=== PATIENT | male | born 1995 | race Caucasian/White ===

== ENCOUNTER 2018-09-25 18:03 | Emergency (ER) | payer OTHER ==
[~2018-09-25] VITALS: Ht 177.8 cm; Wt 75.0 kg
[2018-09-25 18:46] LABS: APPEARANCE, URINE CLEAR (CLEAR); BACTERIA, URINE AUTO 1+ (NEGATIVE); BILIRUBIN, URINE AUTO NEGATIVE (NEGATIVE); BLOOD, URINE BLOOD NEGATIVE (NEGATIVE); COLOR, URINE STRAW (YELLOW); GLUCOSE, URINE (UA) AUTO NEGATIVE (NEGATIVE); KETONE, URINE AUTO NEGATIVE (NEGATIVE); LEUKOCYTE ESTERASE, URINE AUTO 1+ (NEGATIVE); MUCUS, URINE SMALL (NEGATIVE); NITRITE, URINE AUTO NEGATIVE (NEGATIVE); PROTEIN, URINE AUTO NEGATIVE (NEGATIVE); RBC, URINE AUTO 2 /HPF (0-3); SPECIFIC GRAVITY URINE AUTO 1.009 (1.002-1.035); SQUAMOUS EPITHELIAL CELL UR AU 0 /HPF (0-6); UROBILINOGEN, URINE AUTO 0.2 mg/dL (0.0-2.0); WBC, URINE AUTO 6 /HPF (0-3)
[2018-09-25] MEDS ORDERED: cefTRIAXone SOD 250 MG VIAL (J0696) IM ONE (20:15)
[2018-09-25] MEDS ORDERED: LIDOCAINE 1% SDV 5 ML VIAL DILUENT ONE (20:15)
[2018-09-25] MEDS ORDERED: AZITHROMYCIN 250 MG TAB PO ONE (20:15)
[2018-09-25 20:27] LABS: CHLAMYDIA DNA AMPLIFICATION POSITIVE (NEGATIVE); GC DNA AMPLIFICATION NEGATIVE (NEGATIVE)
[2018-09-25 20:40] VITALS: BP 122/62
== END 2018-09-25 20:50 | disposition home or self-care (01) ==
LOC: M ED 18:03
DX: Z20.2 Contact with and (suspected) exposure to infections with a predominantly sexual mode of transmission (principal); L40.9 Psoriasis, unspecified
CPT/HCPCS: 81001; 87491; 87591; 96372; 99283; J0696

== ENCOUNTER → 2019-06-10 | Outpatient (CLI) | payer OTHER ==
[2019-06-10 16:06] LABS: BASO # 0.1 10^3/uL (0.0-0.2); BASO % 1.1 % (0.0-1.0); EOS # 0.2 10^3/uL (0.0-0.5); EOS % 2.4 % (0.0-3.0); HEMATOCRIT 45.2 % (42.0-52.0); HEMOGLOBIN 15.7 g/dl (13.5-17.5); LYMPH # 1.8 10^3/uL (1.5-5.0); LYMPH % 28.6 % (24.0-44.0); MEAN CORPUSCULAR HEMOGLOBIN 31.4 pg (27.0-33.0); MEAN CORPUSCULAR HGB CONC 34.7 g/dl (32.0-36.5); MEAN CORPUSCULAR VOLUME 90.4 fl (80.0-96.0); MONO # 0.7 10^3/uL (0.0-0.8); NEUTROPHILS # 3.6 10^3/uL (1.5-8.5); NEUTROPHILS % 56.7 % (36.0-66.0); PLATELET COUNT, AUTOMATED 218 10^3/uL (150-450); WHITE BLOOD COUNT 6.3 10^3/uL (4.0-10.0)
[2019-06-10 16:44] LABS: ERYTHROCYTE SEDIMENTATION RATE 4 mm/hr (0-15)
[2019-06-10 16:48] LABS: ALBUMIN 4.1 GM/DL (3.2-5.2); ALT/SGPT 18 U/L (12-78); BILIRUBIN,TOTAL 0.3 MG/DL (0.2-1.0); BLOOD UREA NITROGEN 11 MG/DL (7-18); C REACTIVE PROTEIN QUANTITATIV 0.54 MG/DL (0.00-0.30); CALCIUM LEVEL 9.2 MG/DL (8.5-10.1); CARBON DIOXIDE LEVEL 29 MEQ/L (21-32); CHLORIDE LEVEL 104 MEQ/L (98-107); CREATININE FOR GFR 1.02 MG/DL (0.70-1.30); GLOMERULAR FILTRATION RATE > 60.0 (>60); GLUCOSE, FASTING 71 MG/DL (70-100); POTASSIUM SERUM 3.9 MEQ/L (3.5-5.1); SODIUM LEVEL 141 MEQ/L (136-145); TOTAL PROTEIN 7.4 GM/DL (6.4-8.2)
[2019-06-12 08:48] LABS: HEPATITIS B SURFACE ANTIBODY POSITIVE (POSITIVE)
[2019-06-12 08:58] LABS: HEPATITIS B SURFACE ANTIGEN NEGATIVE (NEGATIVE)
[2019-06-12 09:26] LABS: HEPATITIS C VIRUS ABY INDEX 0.1 INDEX (<0.8)
[2019-06-13 08:06] LABS: HEPATITIS B CORE ANTIBODY IGG Negative (Negative)
== END ==
LOC: M LAB 14:37
PROVIDERS: ATTEND Internal Medicine Rheumatology
DX: L40.50 Arthropathic psoriasis, unspecified (principal)
CPT/HCPCS: 36415; 80053; 85025; 85652; 86140; 86480; 86704; 86706; 86803; 87340; G0463

== ENCOUNTER → 2019-07-30 | Outpatient (CLI) | payer OTHER ==
[2019-07-30 10:03] LABS: BASO # 0.1 10^3/uL (0.0-0.2); BASO % 1.6 % (0.0-1.0); EOS # 0.2 10^3/uL (0.0-0.5); EOS % 3.9 % (0.0-3.0); HEMOGLOBIN 15.6 g/dl (13.5-17.5); LYMPH # 2.2 10^3/uL (1.5-5.0); LYMPH % 41.9 % (24.0-44.0); MEAN CORPUSCULAR HEMOGLOBIN 30.7 pg (27.0-33.0); MEAN CORPUSCULAR HGB CONC 33.9 g/dl (32.0-36.5); MEAN CORPUSCULAR VOLUME 90.6 fl (80.0-96.0); MONO # 0.4 10^3/uL (0.0-0.8); MONO % 8.4 % (0.0-5.0); NEUTROPHILS # 2.3 10^3/uL (1.5-8.5); NEUTROPHILS % 43.8 % (36.0-66.0); PLATELET COUNT, AUTOMATED 225 10^3/uL (150-450); RED BLOOD COUNT 5.08 10^6/uL (4.30-6.10); WHITE BLOOD COUNT 5.1 10^3/uL (4.0-10.0)
[2019-07-30 10:25] LABS: ALBUMIN 4.3 GM/DL (3.2-5.2); ALT/SGPT 38 U/L (12-78); BILIRUBIN,TOTAL 0.4 MG/DL (0.2-1.0); BLOOD UREA NITROGEN 15 MG/DL (7-18); C REACTIVE PROTEIN QUANTITATIV < 0.30 MG/DL (0.00-0.30); CALCIUM LEVEL 9.1 MG/DL (8.5-10.1); CARBON DIOXIDE LEVEL 29 MEQ/L (21-32); CHLORIDE LEVEL 104 MEQ/L (98-107); CREATININE FOR GFR 0.86 MG/DL (0.70-1.30); GLOMERULAR FILTRATION RATE > 60.0 (>60); GLUCOSE, FASTING 85 MG/DL (70-100); POTASSIUM SERUM 4.2 MEQ/L (3.5-5.1); SODIUM LEVEL 139 MEQ/L (136-145); TOTAL PROTEIN 7.4 GM/DL (6.4-8.2)
[2019-07-30 10:27] LABS: ERYTHROCYTE SEDIMENTATION RATE 1 mm/hr (0-15)
== END ==
LOC: M LAB 09:07
PROVIDERS: ATTEND Internal Medicine Rheumatology
DX: M46.1 Sacroiliitis, not elsewhere classified (principal)

== ENCOUNTER 2019-10-07 14:07 | Emergency (ER) | payer OTHER ==
[~2019-10-07] VITALS: Ht 180.3 cm; Wt 85.5 kg
[2019-10-07] MEDS ORDERED: [UNRECOGNIZED DRUG - OTHER] (14:14)
[2019-10-07] MEDS ORDERED: HUMI40KI2 SC (15:01)
--- NOTE | 2019-10-07 16:26 | REP ---
Chest x-ray: Two views. History: Shortness of breath and chest pain . Comparison study: No comparison . Findings: The lungs are well inflated and free of infiltrate. The pleural angles are sharp. The heart size is normal. Pulmonary vasculature is not increased. No significant bony abnormality is seen. Impression: Negative chest x-ray. Electronically Signed by Fabian Sandhu MD 10/07/2019 04:17 P
[2019-10-07 17:23] VITALS: BP 131/69
--- NOTE | 2019-10-07 19:18 | ECGEPIP ---
[facility] - ED Test Date: 2019-10-07 Pat Name: JANINE KEANE Department: Room: - Gender: Male [employer] Custodian: mino : 1995 Requested By: HAZEL FRANKS PA-C Order Number: [id number] Reading MD: Kathy Elias Measurements Intervals [place] Rate: 62 P: 12 AK: 149 QRS: 63 QRSD: 103 T: 42 QT: 381 QTc: 387 Interpretive Statements SINUS RHYTHM ST ELEVATION, PROBABLY EARLY REPOLARIZATION NO PRIOR Electronically Signed on 10-07-2019 19:18:40 EST by Kathy Elias
== END 2019-10-07 17:23 | disposition home or self-care (01) ==
LOC: M ED 14:07
DX: R20.2 Paresthesia of skin (principal); R06.02 Shortness of breath; L40.50 Arthropathic psoriasis, unspecified; F17.210 Nicotine dependence, cigarettes, uncomplicated; Z79.899 Other long term (current) drug therapy

== ENCOUNTER → 2020-03-13 | Outpatient (CLI) | payer OTHER ==
[~2020-03-13] MED LIST: HUMI40KI2 SC; [UNRECOGNIZED DRUG - OTHER]
[2020-03-13 15:53] LABS: BASO # 0.1 10^3/uL (0.0-0.2); BASO % 1.2 % (0.0-1.0); EOS # 0.3 10^3/uL (0.0-0.5); EOS % 4.4 % (0.0-3.0); HEMATOCRIT 43.2 % (42.0-52.0); LYMPH # 2.3 10^3/uL (1.5-5.0); MEAN CORPUSCULAR HEMOGLOBIN 31.4 pg (27.0-33.0); MEAN CORPUSCULAR HGB CONC 34.7 g/dl (32.0-36.5); MEAN CORPUSCULAR VOLUME 90.6 fl (80.0-96.0); MONO # 0.5 10^3/uL (0.0-0.8); MONO % 9.5 % (0.0-5.0); NEUTROPHILS # 2.5 10^3/uL (1.5-8.5); NEUTROPHILS % 44.5 % (36.0-66.0); PLATELET COUNT, AUTOMATED 211 10^3/uL (150-450); RED BLOOD COUNT 4.77 10^6/uL (4.30-6.10); WHITE BLOOD COUNT 5.7 10^3/uL (4.0-10.0)
[2020-03-13 16:37] LABS: ALBUMIN 4.2 GM/DL (3.2-5.2); ALT/SGPT 67 U/L (12-78); BILIRUBIN,TOTAL 0.4 MG/DL (0.2-1.0); BLOOD UREA NITROGEN 15 MG/DL (7-18); CALCIUM LEVEL 8.8 MG/DL (8.5-10.1); CARBON DIOXIDE LEVEL 26 MEQ/L (21-32); CHLORIDE LEVEL 106 MEQ/L (98-107); CK-MB VALUE MASS < 1.0 NG/ML (<3.6); CPK CREATINE PHOSPHOKINASE 167 U/L (39-308); CREATININE FOR GFR 0.86 MG/DL (0.70-1.30); GLOMERULAR FILTRATION RATE > 60.0 (>60); GLUCOSE, FASTING 84 MG/DL (70-100); POTASSIUM SERUM 4.1 MEQ/L (3.5-5.1); SODIUM LEVEL 139 MEQ/L (136-145); TOTAL PROTEIN 7.3 GM/DL (6.4-8.2); TROPONIN I < 0.02 NG/ML (< 0.10)
--- NOTE | 2020-03-14 13:22 | REP ---
TWO-VIEW CHEST: REASON: Tietze syndrome. COMPARISON: No priors. FINDINGS: The superior mediastinal structures are midline. The cardiac silhouette is unremarkable in size, shape, and position. The diaphragmatic surfaces of the lungs are regular, and the costophrenic angles are clear. The pulmonary luevano are clear. The imaged osseous structures are intact. IMPRESSION: There is no acute cardiopulmonary disease. Electronically Signed by Олег Bird DO 03/15/2020 08:25 A
== END ==
LOC: M WUC 15:00
PROVIDERS: ATTEND Nurse Practitioner Family
DX: M94.0 Chondrocostal junction syndrome [Tietze] (principal)

== ENCOUNTER 2020-04-11 23:13 | Emergency (ER) | payer OTHER | END 2020-04-12 02:30 | disposition home or self-care (01) | LOC: M ED 23:13 | DX: J02.9 Acute pharyngitis, unspecified (principal); Z79.899 Other long term (current) drug therapy ==

== ENCOUNTER → 2020-04-18 | Outpatient (REF) | payer OTHER ==
[2020-05-26 14:09] LABS: EBV AB TO NUCLEAR ANTIGEN SEE SEPARATE REPORT; EBV VIRAL CAPSID AG IgG SEE SEPARATE REPORT; EBV VIRAL CAPSID AG IgM SEE SEPARATE REPORT
[2020-06-07 09:18] LABS: BASO # 0.1 10^3/uL (0.0-0.2); BASO % 1.2 % (0.0-1.0); EOS # 0.3 10^3/uL (0.0-0.5); EOS % 4.6 % (0.0-3.0); HEMATOCRIT 44.9 % (42.0-52.0); HEMOGLOBIN 15.6 g/dl (13.5-17.5); LYMPH # 2.7 10^3/uL (1.5-5.0); LYMPH % 40.4 % (24.0-44.0); MEAN CORPUSCULAR HGB CONC 34.7 g/dl (32.0-36.5); MEAN CORPUSCULAR VOLUME 89.3 fl (80.0-96.0); MONO # 0.5 10^3/uL (0.0-0.8); NEUTROPHILS # 3.1 10^3/uL (1.5-8.5); NEUTROPHILS % 45.7 % (36.0-66.0); PLATELET COUNT, AUTOMATED 235 10^3/uL (150-450); RED BLOOD COUNT 5.03 10^6/uL (4.30-6.10); WHITE BLOOD COUNT 6.8 10^3/uL (4.0-10.0)
== END ==
LOC: M LABWUC 13:53 → M LAB REF 13:53
PROVIDERS: ATTEND Physician Assistant
DX: J02.9 Acute pharyngitis, unspecified (principal)

== ENCOUNTER 2020-05-20 00:16 | Emergency (ER) | payer OTHER, SELFPAY ==
[~2020-05-20] VITALS: Ht 177.8 cm; Wt 81.8 kg
--- NOTE | 2020-05-20 00:58 | REPVR ---
PROCEDURE INFORMATION: Exam: XR Chest, 2 Views Exam date and time: 05/20/2020 12:45 AM Age: 24 years old Clinical indication: Other: Cp; Additional info: Chest pain TECHNIQUE: Imaging protocol: XR of the chest Views: 2 views. COMPARISON: CR CHEST 2 VIEW 03/13/2020 3:16 PM FINDINGS: Lungs: Question of minimal calcified granulomata which are unchanged. There are no interval infiltrates. Pleural space: Unremarkable. No pleural effusion. No pneumothorax. Heart/Mediastinum: Unremarkable. No cardiomegaly. Bones/joints: Unremarkable. IMPRESSION: Negative chest without change from 03/13/2020. Electronically signed by: Blas Kaplan On 05/20/2020 00:57:48 AM
[2020-05-20 01:17] LABS: BASO # 0.1 10^3/uL (0.0-0.2); BASO % 0.7 % (0.0-1.0); EOS # 0.3 10^3/uL (0.0-0.5); EOS % 3.6 % (0.0-3.0); HEMATOCRIT 44.3 % (42.0-52.0); HEMOGLOBIN 15.3 g/dl (13.5-17.5); LYMPH # 3.3 10^3/uL (1.5-5.0); LYMPH % 39.9 % (24.0-44.0); MEAN CORPUSCULAR HEMOGLOBIN 30.7 pg (27.0-33.0); MEAN CORPUSCULAR HGB CONC 34.5 g/dl (32.0-36.5); MONO # 0.8 10^3/uL (0.0-0.8); MONO % 10.1 % (0.0-5.0); NEUTROPHILS # 3.7 10^3/uL (1.5-8.5); NEUTROPHILS % 45.5 % (36.0-66.0); PLATELET COUNT, AUTOMATED 231 10^3/uL (150-450); RED BLOOD COUNT 4.98 10^6/uL (4.30-6.10); WHITE BLOOD COUNT 8.2 10^3/uL (4.0-10.0)
[2020-05-20 01:41] LABS: ALT/SGPT 22 U/L (12-78); BILIRUBIN,DIRECT 0.1 MG/DL (0.0-0.2); BILIRUBIN,TOTAL 0.3 MG/DL (0.2-1.0); BLOOD UREA NITROGEN 17 MG/DL (7-18); CALCIUM LEVEL 9.2 MG/DL (8.5-10.1); CARBON DIOXIDE LEVEL 29 MEQ/L (21-32); CHLORIDE LEVEL 105 MEQ/L (98-107); CK-MB VALUE MASS < 1.0 NG/ML (<3.6); CPK CREATINE PHOSPHOKINASE 126 U/L (39-308); CREATININE FOR GFR 0.96 MG/DL (0.70-1.30); GLOMERULAR FILTRATION RATE > 60.0 (>60); GLUCOSE, FASTING 92 MG/DL (70-100); LIPASE 74 U/L (73-393); MB/CK RELATIVE INDEX 0.79 (< OR =4); POTASSIUM SERUM 3.9 MEQ/L (3.5-5.1); SODIUM LEVEL 137 MEQ/L (136-145); TOTAL PROTEIN 7.6 GM/DL (6.4-8.2); TROPONIN I < 0.02 NG/ML (< 0.10)
[2020-05-20 02:30] VITALS: BP 119/72
--- NOTE | 2020-05-23 09:42 | ECGEPIP ---
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
== END 2020-05-20 03:05 | disposition home or self-care (01) ==
LOC: M ED 00:16
DX: R07.9 Chest pain, unspecified (principal); L40.52 Psoriatic arthritis mutilans; Z79.899 Other long term (current) drug therapy

== ENCOUNTER 2020-12-04 22:13 | Emergency (ER) | payer OTHER ==
[~2020-12-04] VITALS: Ht 177.8 cm; Wt 90.6 kg
[2020-12-05] MEDS ORDERED: diphenhydrAMINE 50MG/ML VIAL (J1200) IV STA (02:09)
[2020-12-05] MEDS ORDERED: METOCLOPRAMIDE INJ 10MG/2ML VIAL (J2765 PER 1) IV ONE (02:10)
[2020-12-05] MEDS ORDERED: NS 1,000 ML IV ONE (02:10)
[2020-12-05 02:38] LABS: HEMATOCRIT 43.2 % (42.0-52.0); HEMOGLOBIN 14.4 g/dl (13.5-17.5); MEAN CORPUSCULAR HEMOGLOBIN 30.1 pg (27.0-33.0); MEAN CORPUSCULAR HGB CONC 33.3 g/dl (32.0-36.5); MEAN CORPUSCULAR VOLUME 90.4 fl (80.0-96.0); PLATELET COUNT, AUTOMATED 171 10^3/uL (150-450); RED BLOOD COUNT 4.78 10^6/uL (4.30-6.10); WHITE BLOOD COUNT 4.2 10^3/uL (4.0-10.0)
[2020-12-05 03:06] LABS: BLOOD UREA NITROGEN 14 MG/DL (7-18); CALCIUM LEVEL 8.5 MG/DL (8.5-10.1); CARBON DIOXIDE LEVEL 29 MEQ/L (21-32); CHLORIDE LEVEL 108 MEQ/L (98-107); CREATININE FOR GFR 0.87 MG/DL (0.70-1.30); GLOMERULAR FILTRATION RATE > 60.0 (>60); GLUCOSE, FASTING 102 MG/DL (70-100); POTASSIUM SERUM 4.2 MEQ/L (3.5-5.1); SODIUM LEVEL 141 MEQ/L (136-145)
[2020-12-05 03:37] LABS: RSV AMPLIFICATION NEGATIVE (NEGATIVE)
[2020-12-05] MEDS ORDERED: FIOR1CAP PO (04:30)
[2020-12-05 04:42] VITALS: BP 123/62
== END 2020-12-05 04:43 | disposition home or self-care (01) ==
LOC: M ED 22:13
DX: G43.909 Migraine, unspecified, not intractable, without status migrainosus (principal); J02.9 Acute pharyngitis, unspecified; Z79.899 Other long term (current) drug therapy
CPT/HCPCS: 80048; 85027; 87631; 96361; 96374; 96375; 99283; J1200; J2765

== ENCOUNTER 2020-12-06 21:11 | Emergency (ER) | payer OTHER ==
[~2020-12-06] VITALS: Ht 177.8 cm; Wt 90.6 kg
[~2020-12-06 21:11] MED LIST changes: +FIOR1CAP PO
[2020-12-06] MEDS ORDERED: diphenhydrAMINE 50MG/ML VIAL (J1200) IV STA (22:52)
[2020-12-06] MEDS ORDERED: KETOROLAC 30 MG/ML 1ML VIAL IV ONE (22:55)
[2020-12-06] MEDS ORDERED: METOCLOPRAMIDE INJ 10MG/2ML VIAL (J2765 PER 1) IV ONE (22:55)
[2020-12-06] MEDS ORDERED: NS 1,000 ML IV ONE (22:55)
[2020-12-07 00:03] LABS: ERYTHROCYTE SEDIMENTATION RATE 6 mm/hr (0-15)
[2020-12-07 00:07] LABS: BASO # 0.1 10^3/uL (0.0-0.2); BASO % 1.3 % (0.0-1.0); EOS # 0.1 10^3/uL (0.0-0.5); EOS % 1.8 % (0.0-3.0); HEMATOCRIT 43.1 % (42.0-52.0); HEMOGLOBIN 14.9 g/dl (13.5-17.5); LYMPH # 1.6 10^3/uL (1.5-5.0); LYMPH % 36.1 % (24.0-44.0); MEAN CORPUSCULAR HEMOGLOBIN 30.5 pg (27.0-33.0); MEAN CORPUSCULAR HGB CONC 34.6 g/dl (32.0-36.5); MEAN CORPUSCULAR VOLUME 88.3 fl (80.0-96.0); MONO # 0.5 10^3/uL (0.0-0.8); MONO % 11.1 % (2.0-8.0); NEUTROPHILS # 2.2 10^3/uL (1.5-8.5); NEUTROPHILS % 48.8 % (36.0-66.0); PLATELET COUNT, AUTOMATED 183 10^3/uL (150-450); RED BLOOD COUNT 4.88 10^6/uL (4.30-6.10); WHITE BLOOD COUNT 4.5 10^3/uL (4.0-10.0)
[2020-12-07 00:18] LABS: MONO REFLEX EBV COMP NEGATIVE (NEGATIVE)
[2020-12-07] MEDS ORDERED: PROHANCE 279.3MG/ML 15ML VIAL As Ordered ONE (01:07)
[2020-12-07] MEDS ORDERED: PROHANCE 279.3MG/ML 5ML VIAL As Ordered ONE (01:07)
--- NOTE | 2020-12-07 01:50 | REPVR ---
PROCEDURE INFORMATION: Exam: MR Lumbar Spine Without and With Contrast Exam date and time: 12/07/2020 1:25 AM Age: 25 years old Clinical indication: Low back pain; Additional info: Fever, low back pain, worsening, PT tender TECHNIQUE: Imaging protocol: Multiplanar magnetic resonance images of the lumbar spine without and with intravenous contrast. Contrast material: PROHANCE; Contrast volume: 18 ml; Contrast route: INTRAVENOUS (IV); COMPARISON: No relevant prior studies available. FINDINGS: Nonspecific straightening. Vertebral body height and AP alignment is preserved. Multilevel Schmorl's node formation. Negative for discitis/osteomyelitis. Conus medullaris terminates at L1. No epidural fluid collection. No pathologic intrathecal enhancement. L1-L2: No central or foraminal stenosis. L2-L3: No central or foraminal stenosis. L3-L4: No central or foraminal stenosis. L4-L5: No central or foraminal stenosis. L5-S1: No central or foraminal stenosis. IMPRESSION: 1. No acute abnormality involving the lumbar spine. 2. No significant central canal compromise throughout. Electronically signed by: Cristóbal Lal On 12/07/2020 01:50:16 AM
[2020-12-07] MEDS ORDERED: ANEC4CRE3 TOP (02:01)
[2020-12-07] MEDS ORDERED: NAPR-837 PO (02:01)
[2020-12-07 02:37] VITALS: BP 126/69
[2020-12-08 16:09] LABS: EBV AB TO NUCLEAR ANTIGEN >600.0 U/mL (0.0-17.9); EBV VIRAL CAPSID AG IgG >600.0 U/mL (0.0-17.9); EBV VIRAL CAPSID AG IgM <36.0 U/mL (0.0-35.9)
== END 2020-12-07 02:44 | disposition home or self-care (01) ==
LOC: M ED 21:11
DX: F50.9 Eating disorder, unspecified (principal); R51.9 Headache, unspecified; M54.5 Low back pain; F41.9 Anxiety disorder, unspecified
CPT/HCPCS: 72158; 80047; 83605; 85025; 85652; 86140; 86308; 86664; 86665; 87040; 87798; 96361; 96374; 96375; 99284; A9576; J1200; J1885; J2765

== ENCOUNTER 2020-12-10 15:41 | Emergency (ER) | payer OTHER ==
[~2020-12-10] VITALS: Ht 182.9 cm; Wt 88.9 kg
[2020-12-10 15:41] VITALS: BP 118/84
[~2020-12-10 15:41] MED LIST changes: +ANEC4CRE3 TOP; +NAPR-837 PO
[2020-12-10] MEDS ORDERED: CEFD1CAP8 (15:53)
[2020-12-10] MEDS ORDERED: ZITH250T (15:53)
[2020-12-10] MEDS ORDERED: ACET-683 PO (15:53)
[2020-12-10] MEDS ORDERED: ACETAMINOPHEN 325 MG TAB PO ONE (16:55)
--- NOTE | 2020-12-10 17:16 | REPVR ---
PROCEDURE INFORMATION: Exam: CT Head Without Contrast Exam date and time: 12/10/2020 4:59 PM Age: 25 years old Clinical indication: Pain; Headache; Additional info: Headache x 1 week TECHNIQUE: Imaging protocol: Computed tomography of the head without contrast. Radiation optimization: All CT scans at this facility use at least one of these dose optimization techniques: automated exposure control; mA and/or kV adjustment per patient size (includes targeted exams where dose is matched to clinical indication); or iterative reconstruction. COMPARISON: No relevant prior studies available. FINDINGS: Brain: No acute intracranial hemorrhage, cerebral edema, or midline shift. Cerebral ventricles: No hydrocephalus. Bones/joints: No acute fracture. Paranasal sinuses: There is a tiny mucous retention cyst in the right maxillary sinus. There is no acute sinusitis. Mastoid air cells: Visualized mastoid air cells are well aerated. Orbital cavity: Unremarkable as visualized. Soft tissues: Unremarkable. IMPRESSION: No acute intracranial abnormality. Electronically signed by: Bala Thompson On 12/10/2020 17:17:24 PM
[2020-12-10 17:20] LABS: BASO # 0.1 10^3/uL (0.0-0.2); BASO % 1.2 % (0.0-1.0); EOS # 0.1 10^3/uL (0.0-0.5); EOS % 1.4 % (0.0-3.0); HEMATOCRIT 42.2 % (42.0-52.0); HEMOGLOBIN 14.4 g/dl (13.5-17.5); LYMPH # 2.6 10^3/uL (1.5-5.0); LYMPH % 50.9 % (24.0-44.0); MEAN CORPUSCULAR HEMOGLOBIN 30.3 pg (27.0-33.0); MEAN CORPUSCULAR HGB CONC 34.1 g/dl (32.0-36.5); MEAN CORPUSCULAR VOLUME 88.8 fl (80.0-96.0); MONO # 0.5 10^3/uL (0.0-0.8); MONO % 9.7 % (2.0-8.0); NEUTROPHILS # 1.9 10^3/uL (1.5-8.5); NEUTROPHILS % 36.4 % (36.0-66.0); PLATELET COUNT, AUTOMATED 194 10^3/uL (150-450); RED BLOOD COUNT 4.75 10^6/uL (4.30-6.10); WHITE BLOOD COUNT 5.2 10^3/uL (4.0-10.0)
--- NOTE | 2020-12-10 17:24 | REPVR ---
PROCEDURE INFORMATION: Exam: CT Cervical Spine Without Contrast Exam date and time: 12/10/2020 4:59 PM Age: 25 years old Clinical indication: Pain; Other: Headache; Additional info: Headache x 1 week TECHNIQUE: Imaging protocol: Computed tomography images of the cervical spine without contrast. Radiation optimization: All CT scans at this facility use at least one of these dose optimization techniques: automated exposure control; mA and/or kV adjustment per patient size (includes targeted exams where dose is matched to clinical indication); or iterative reconstruction. COMPARISON: No relevant prior studies available. FINDINGS: Bones/joints: No acute fracture. Normal alignment. Discs/Spinal canal/Neural foramina: No significant spinal canal stenosis or neural foraminal narrowing. Lungs: Lung apices are normal. Soft tissues: Unremarkable. IMPRESSION: No acute findings. Electronically signed by: Bala Thompson On 12/10/2020 17:24:19 PM
[2020-12-10 17:37] LABS: ALBUMIN 3.8 GM/DL (3.2-5.2); ALT/SGPT 460 U/L (12-78); BILIRUBIN,TOTAL 0.5 MG/DL (0.2-1.0); BLOOD UREA NITROGEN 6 MG/DL (7-18); C REACTIVE PROTEIN QUANTITATIV 1.56 MG/DL (0.00-0.30); CALCIUM LEVEL 8.9 MG/DL (8.5-10.1); CARBON DIOXIDE LEVEL 30 MEQ/L (21-32); CHLORIDE LEVEL 106 MEQ/L (98-107); CREATININE FOR GFR 0.92 MG/DL (0.70-1.30); GLOMERULAR FILTRATION RATE > 60.0 (>60); GLUCOSE, FASTING 117 MG/DL (70-100); POTASSIUM SERUM 4.1 MEQ/L (3.5-5.1); SODIUM LEVEL 140 MEQ/L (136-145); TOTAL PROTEIN 7.2 GM/DL (6.4-8.2)
[2020-12-10 17:44] LABS: ERYTHROCYTE SEDIMENTATION RATE 7 mm/hr (0-15)
[2020-12-10] MEDS ORDERED: NS 1,000 ML IV ONE (17:50)
[2020-12-10 18:24] LABS: HEPATITIS B SURFACE ANTIGEN NEGATIVE (NEGATIVE)
--- NOTE | 2020-12-10 18:40 | REP ---
INDICATION: elevated lfts/fever. COMPARISON: None. TECHNIQUE: Abdominal right upper quadrant ultrasound. FINDINGS: There is a negative Alanis sign to transducer pressure. There is no cholelithiasis, gallbladder wall thickening or pericholecystic fluid. There is no intrahepatic or extrahepatic biliary duct dilatation. The common biliary duct measures 3 point mm in diameter. The hepatic parenchyma is homogeneous and otherwise unremarkable. The pancreas is suboptimally visualized. The right kidney measures 12.0 x 5.1 x 5.2 cm and is normal size. There is no right renal calculus, hydronephrosis, solid mass or cystic mass. There is no right upper quadrant abdominal free fluid. IMPRESSION: Essentially negative abdominal right upper quadrant ultrasound. The pancreas is suboptimally visualized. <Electronically signed by Juice Osorio > 12/10/20 [id number]
[2020-12-10 18:52] LABS: HEPATITIS B CORE ANTIBODY IGM NEGATIVE (NEGATIVE); HEPATITIS C VIRUS ABY INDEX < 0.0 INDEX (<0.8)
[2020-12-10 18:54] LABS: HEPATITIS A ANTIBODY IGM NEGATIVE (NEGATIVE)
[2020-12-14 15:07] LABS: Lyme Disease IgG Ab 18 kDa Ban Absent (.); Lyme Disease IgG Ab 23 kDa Ban Absent (.); Lyme Disease IgG Ab 28 kDa Ban Absent (.); Lyme Disease IgG Ab 30 kDa Ban Absent (.); Lyme Disease IgG Ab 39 kDa Ban Absent (.); Lyme Disease IgG Ab 41 kDa Ban Present (.); Lyme Disease IgG Ab 45 kDa Ban Absent (.); Lyme Disease IgG Ab 58 kDa Ban Absent (.); Lyme Disease IgG Ab 66 kDa Ban Absent (.); Lyme Disease IgG Ab 93 kDa Ban Absent (.); Lyme Disease IgG West Blot Int Negative (.); Lyme Disease IgG/IgM Antibodie <0.91 ISR (0.00-0.90); Lyme Disease IgM Ab 23 kDa Ban Absent (.); Lyme Disease IgM Ab 39 kDa Ban Absent (.); Lyme Disease IgM Ab 41 kDa Ban Present (.); Lyme Disease IgM Ab Quantitati 2.37 index (0.00-0.79); Lyme Disease IgM West Blot Int Negative (.)
== END 2020-12-10 19:35 | disposition home or self-care (01) ==
LOC: M ED 15:41
DX: B34.9 Viral infection, unspecified (principal); R50.9 Fever, unspecified; R51.9 Headache, unspecified

== ENCOUNTER 2020-12-13 11:20 | Emergency (ER) | payer OTHER ==
[~2020-12-13] VITALS: Ht 177.8 cm; Wt 88.1 kg
[~2020-12-13 11:20] MED LIST changes: +ACET-683 PO; +CEFD1CAP8; +ZITH250T
[2020-12-13] MEDS ORDERED: IBUP200C25 PO (12:03)
[2020-12-13] MEDS ORDERED: NS 1,000 ML IV ONE (13:55)
[2020-12-13 14:19] LABS: HEMATOCRIT 43.5 % (42.0-52.0); HEMOGLOBIN 14.6 g/dl (13.5-17.5); MEAN CORPUSCULAR HEMOGLOBIN 29.9 pg (27.0-33.0); MEAN CORPUSCULAR HGB CONC 33.6 g/dl (32.0-36.5); PLATELET COUNT, AUTOMATED 213 10^3/uL (150-450); RED BLOOD COUNT 4.89 10^6/uL (4.30-6.10); WHITE BLOOD COUNT 6.8 10^3/uL (4.0-10.0)
[2020-12-13] MEDS ORDERED: ISOVUE-370 76% 100ML VIAL As Ordered ONE (14:33)
[2020-12-13 14:48] LABS: AMPHETAMINES LEVEL URINE NEGATIVE (NEGATIVE); BARBITURATES URINE NEGATIVE (NEGATIVE); BENZODIAZEPINES URINE NEGATIVE (NEGATIVE); CANNABINOIDS URINE NEGATIVE (NEGATIVE); COCAINE METABOLITE URINE NEGATIVE (NEGATIVE); METHADONE URINE NEGATIVE (NEGATIVE); OPIATES URINE NEGATIVE (NEGATIVE); PHENCYCLIDINE URINE NEGATIVE (NEGATIVE)
[2020-12-13 14:55] LABS: ACETAMINOPHEN LEVEL < 2.0 UG/ML (10.0-30.0); ALBUMIN 3.9 GM/DL (3.2-5.2); ALT/SGPT 866 U/L (12-78); BILIRUBIN,DIRECT 0.2 MG/DL (0.0-0.2); BILIRUBIN,TOTAL 0.7 MG/DL (0.2-1.0); C REACTIVE PROTEIN QUANTITATIV 1.55 MG/DL (0.00-0.30); TOTAL PROTEIN 7.4 GM/DL (6.4-8.2)
[2020-12-13 15:06] LABS: ATYPICAL LYMPH 64 % (0-5); EOSINOPHILS 3 % (0-3); LYMPHOCYTES 4 % (16-44); MONOCYTES 3 % (0-5); NEUTROPHILS 22 % (28-66); PLATELET ESTIMATE NORMAL (NORMAL)
--- NOTE | 2020-12-13 15:27 | REP ---
INDICATION: cva tenderness COMPARISON: None. TECHNIQUE: CT Scan of the abdomen and pelvis was performed with intravenous administration of 100 cc of Isovue 370, without oral contrast. Sagittal and coronal reconstruction images are performed. FINDINGS: Lung bases: Unremarkable. Liver: Normal Gallbladder: Unremarkable. Spleen: Normal. Adrenals: Normal. Pancreas: Normal. Kidneys: Normal. Small and large bowel: Unremarkable. Free fluid: None. Abdominal aorta: No aneurysm or dissection. Adenopathy: None. Multiple subcentimeter lymph nodes are seen scattered diffusely throughout the mesentery. Appendix: Not inflamed. Osseous structures: There is mild sclerotic change along the sacroiliac joints. Pelvis: No mass. IMPRESSION: No acute pathology identified. Mild sclerosis at the sacroiliac joints bilaterally. <Electronically signed by Juice Davis > 12/13/20 [id number]
[2020-12-13 15:43] LABS: INR 1.08; PARTIAL THROMBOPLASTIN TIME 30.5 SECONDS (24.2-38.5); PROTHROMBIN TIME 14.3 SECONDS (12.5-14.3)
[2020-12-13] MEDS ORDERED: ACETAMINOPHEN 325 MG TAB PO ONE (15:45)
--- NOTE | 2020-12-13 16:22 | ECGEPIP ---
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
[2020-12-13] MEDS ORDERED: CEPH500C PO (17:12)
[2020-12-13] MEDS ORDERED: ZOFR4TAB16 PO (17:13)
[2020-12-13] MEDS ORDERED: CEPHALEXIN 500 MG CAP PO ONE (17:20)
[2020-12-13 17:39] VITALS: BP 114/66
[2020-12-14 10:29] LABS: HEPATITIS B SURFACE ANTIGEN NEGATIVE (NEGATIVE)
[2020-12-14 10:56] LABS: HEPATITIS C VIRUS ABY INDEX < 0.0 INDEX (<0.8)
[2020-12-14 10:57] LABS: HEPATITIS B CORE ANTIBODY IGM NEGATIVE (NEGATIVE)
[2020-12-14 12:34] LABS: HEPATITIS A ANTIBODY IGM NEGATIVE (NEGATIVE)
== END 2020-12-13 17:42 | disposition home or self-care (01) ==
LOC: M ED 11:20
DX: J02.0 Streptococcal pharyngitis (principal); R53.81 Other malaise; R53.83 Other fatigue; R94.5 Abnormal results of liver function studies; M46.1 Sacroiliitis, not elsewhere classified; R51.9 Headache, unspecified; M54.9 Dorsalgia, unspecified; F41.9 Anxiety disorder, unspecified
CPT/HCPCS: 36415; 74177; 80047; 80076; 80143; 80307; 81001; 85025; 85610; 85730; 86140; 86705; 86709; 86803; 87340; 87880; 93005; 96360; 96361; 99284; Q9967

== ENCOUNTER 2020-12-16 18:56 | Inpatient (IN) | payer OTHER ==
[~2020-12-16] VITALS: Ht 177.8 cm; Wt 84.1 kg
[~2020-12-16 18:56] MED LIST changes: +CEPH500C PO; +IBUP200C25 PO; +ZOFR4TAB16 PO
[2020-12-16] MEDS: NS 1,000 ML IV SCH (20:09)
[2020-12-16] MEDS: GASTROGRAFIN SOLUTION 30ML PO SCH ×2 (20:09→20:38)
[2020-12-16 20:22] LABS: HEMATOCRIT 43.3 % (42.0-52.0); HEMOGLOBIN 14.6 g/dl (13.5-17.5); MEAN CORPUSCULAR HEMOGLOBIN 30.3 pg (27.0-33.0); MEAN CORPUSCULAR HGB CONC 33.7 g/dl (32.0-36.5); MEAN CORPUSCULAR VOLUME 89.8 fl (80.0-96.0); PLATELET COUNT, AUTOMATED 243 10^3/uL (150-450); RED BLOOD COUNT 4.82 10^6/uL (4.30-6.10); WHITE BLOOD COUNT 6.6 10^3/uL (4.0-10.0)
[2020-12-16 20:53] LABS: ATYPICAL LYMPH 22 % (0-5); BASOPHILS 1 % (0-1); EOSINOPHILS 2 % (0-3); LYMPHOCYTES 48 % (16-44); MONOCYTES 4 % (0-5); NEUTROPHILS 23 % (28-66)
[2020-12-16 20:54] LABS: PLATELET ESTIMATE NORMAL (NORMAL)
[2020-12-16 21:13] LABS: ALT/SGPT 684 U/L (12-78); BILIRUBIN,DIRECT 0.1 MG/DL (0.0-0.2); BILIRUBIN,TOTAL 0.7 MG/DL (0.2-1.0); BLOOD UREA NITROGEN 5 MG/DL (7-18); CALCIUM LEVEL 9.3 MG/DL (8.5-10.1); CARBON DIOXIDE LEVEL 28 MEQ/L (21-32); CHLORIDE LEVEL 103 MEQ/L (98-107); CREATININE FOR GFR 0.87 MG/DL (0.70-1.30); GLOMERULAR FILTRATION RATE > 60.0 (>60); GLUCOSE, FASTING 91 MG/DL (70-100); LIPASE 113 U/L (73-393); SODIUM LEVEL 138 MEQ/L (136-145); TOTAL PROTEIN 7.6 GM/DL (6.4-8.2)
[2020-12-16 21:52] LABS: CHLAMYDIA DNA AMPLIFICATION NEGATIVE (NEGATIVE); GC DNA AMPLIFICATION NEGATIVE (NEGATIVE)
[2020-12-16] MEDS ORDERED: ISOVUE-370 76% 100ML VIAL As Ordered ONE (21:55)
--- NOTE | 2020-12-16 23:23 | REPVR ---
PROCEDURE INFORMATION: Exam: CT Abdomen And Pelvis With Contrast Exam date and time: 12/16/2020 10:07 PM Age: 25 years old Clinical indication: Abdominal pain; Generalized; Additional info: R flank, bilat low abd pain TECHNIQUE: Imaging protocol: Computed tomography of the abdomen and pelvis with contrast. Radiation optimization: All CT scans at this facility use at least one of these dose optimization techniques: automated exposure control; mA and/or kV adjustment per patient size (includes targeted exams where dose is matched to clinical indication); or iterative reconstruction. Contrast material: ISOVUE 370; Contrast volume: 100 ml; Contrast route: INTRAVENOUS (IV); COMPARISON: CT ABD/PEL W/IV CONTRAST ONLY 12/13/2020 2:46 PM FINDINGS: Liver: Hepatomegaly measures 18 cm. Gallbladder and bile ducts: Normal. No calcified stones. No ductal dilation. Pancreas: Normal. No ductal dilation. Spleen: Splenomegaly measures 13 cm. Adrenal glands: Normal. No mass. Kidneys and ureters: Normal. No hydronephrosis. Stomach and bowel: Unremarkable. No obstruction. No mucosal thickening. Appendix: Appendix measures maximally up to 8 mm which is mildly thickened. No adjacent inflammation. Normal appendix. Intraperitoneal space: Unremarkable. No free air. No significant fluid collection. Vasculature: Unremarkable. No abdominal aortic aneurysm. Lymph nodes: Unremarkable. No enlarged lymph nodes. Urinary bladder: Under distended urinary bladder. Reproductive: Unremarkable as visualized. Bones/joints: There is symmetric bilateral sacroiliitis, stable from prior examination. Soft tissues: Unremarkable. IMPRESSION: 1. Appendix is mildly thickened, measuring 8 mm. No adjacent inflammatory changes are present. Early appendicitis is not excluded. 2. Symmetric bilateral sacroiliitis, stable from prior examination. Electronically signed by: Cristóbal Lal On 12/16/2020 23:24:11 PM
[2020-12-17] MEDS ORDERED: CEPH500T PO (00:07)
[2020-12-17] MEDS ORDERED: D31000TA2 PO (00:07)
[2020-12-17] MEDS ORDERED: HUMI40KI2 SC (00:07)
[2020-12-17] MEDS: NS 1,000 ML IV SCH (02:43)
[2020-12-17] MEDS ORDERED: MOM 30ML SUSPENSION UDC PO PRN (03:00)
[2020-12-17] MEDS ORDERED: MAALOX 30 ML SUSP *UDC PO PRN (03:00)
[2020-12-17] MEDS ORDERED: NS 500 ML IV ONE (03:10)
[2020-12-17 03:11] LABS: INR 1.19; PARTIAL THROMBOPLASTIN TIME 32.9 SECONDS (24.2-38.5); PROTHROMBIN TIME 15.4 SECONDS (12.5-14.3)
[2020-12-17 03:24] LABS: ACETAMINOPHEN LEVEL < 2.0 UG/ML (10.0-30.0); C REACTIVE PROTEIN QUANTITATIV 1.28 MG/DL (0.00-0.30); FERRITIN 874 NG/ML (26-388)
[2020-12-17 03:30] VITALS: BP 118/81
[2020-12-17 03:35] LABS: ERYTHROCYTE SEDIMENTATION RATE 9 mm/hr (0-15)
[2020-12-17] MEDS ORDERED: oxyCODONE 5MG TAB PO ONE (03:45)
--- NOTE | 2020-12-17 05:15 | IPNPDOC ---
Text Note Date of Service The patient was seen on 12/17/20. VS,Henrybone, I+O VS, Fishbone, I+O Laboratory Tests 12/16/20 19:43 Vital Signs Date Time Temp Pulse Resp B/P (MAP) Pulse Ox O2 Delivery O2 Flow Rate FiO2 12/17/20 02:54 88 17 99 Room Air 12/16/20 21:45 142/77 (98) 12/16/20 20:18 98.9 I&O- Last 24 Hours up to 6 AM 12/17/20 06:00 Intake Total 1000 ml Balance 1000 ml FESTUS MARTINEZ MD Dec 17, 2020 05:15
[2020-12-17 06:00] VITALS: BP 116/76
--- NOTE | 2020-12-17 06:49 | HPEPDOC ---
[facility] Medical History & Physical Date of Admission Dec 17, 2020 Date of Service: Dec 17, 2020 Other Provider Sees [facility] providers for primary care Also sees a Dr. Ramirez at [facility] for outpatient rheumatology Attending Physician: FESTUS MARTINEZ MD History and Physical CHIEF COMPLAINT: Right-sided abdominal pain HISTORY OF PRESENT ILLNESS: Lazaro is a pleasant 25yo male w/ PMHx of ankylosing spondylitis, psoriatic arthritis, and low vitamin D, who presented to the ED late in the evening on 12/16 with a chief complaint of right-sided abdominal, flank, and back pain. The pain arose this morning when patient woke up and he reports it has steadily worsened throughout the day. He describes it as a dull throb that progresses to sharp pain whenever pressure is applied. He has the associated right flank and back pain. He describes the flank and back pain is different from his typical pain associated with his enclosing spondylitis and psoriatic arthritis. He has had a decreased appetite with some nausea yesterday but is maintained a steady consistent fluid intake. Is important to note this mendoza the patient's fifth ED visit in the past 2 weeks (since 12/04). His symptoms began with dizziness at rest that progressed to intermittent subjective fevers and bilateral temporal head pressure. Back in the beginning of the month, he initially presented to urgent care where he was febrile and subsequently seen in the ED and diagnosed with a tension headache. He then returned another 2 times to the ED and was told he had a viral illness. He was instructed to alternate taking ibuprofen and Tylenol in maintaining good hydration for symptomatic management. He then tried the [place] emergency department, where a send out Covid test was done and he was instructed to quarantine for 5 days. He most recently was seen at the [facility] ED on 12/13, at which point a rapid strep test was positive and he was prescribed 10 days of cephalexin. Over the course of the past 10 days or so, he reports averaging three, 200 mg ibuprofen tablets/day (600 mg), as well as two, 500 mg Tylenol extra strength tablets/day (1 g). Due to continuing intermittent fevers at home, generalized weakness, and the new onset abdominal pain today, he subsequently returned to the ED again. He had elevated liver enzymes on his last 2 ED presentations and again they were elevated today with AST 362 and ALT 684, with alkaline phosphatase of 223. When reviewing the recent records, the AST and ALT are actually decreased from where they were just 3 days ago. He was afebrile in the ED and had no white count, although he did have a lymphocyte predominance on differential. In abdomen, pelvis CT with contrast was ordered in the ED due to the new onset abdominal pain which showed mild thickening of the appendix without the ability to exclude appendicitis, but no evidence of periappendiceal fat stranding. The ED spoke with the on-call general surgeon (Dr. Serrano) who reviewed the CT and did not feel surgical intervention was warranted at this time. An urinalysis was unremarkable and testing for chlamydia and gonorrhea was negative. IV fluid hydration in the form of normal saline was initiated. The patient was subsequently admitted under the care of the hospitalist service primarily for further workup of elevated liver enzymes in the setting of new onset abdominal pain. PAST MEDICAL HISTORY: Ankylosing spondylitis and psoriatic arthritis (had previously been on Humira but has not been taking it over the past 7 months. Low vitamin D Left torn ACL that was managed without surgery PAST SURGICAL HISTORY: No prior surgical history SOCIAL HISTORY: Patient is and has a 30-gomvh-ant son. He lives in [place]. 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 He follows at the [facility] intermittently for primary care and has a watch adjuster through the [facility]. Patient is a former user of chewing tobacco. He dipped for 9 years and quit 1 year ago. He also is a former smoker, averaging 10 cigarettes per month over two-year period while in the [employer]. Patient has not had any alcohol over the past month and prior to that, reports an average monthly intake of 6 beers. Patient has previously smoked marijuana and as a teenager snorted Adderall, but was not prescribed to him. He denies any prior IV drug use history. FAMILY HISTORY: Both his parents are still living and each have an unspecified thyroid issue. Patient has 2 sisters with cardiomyopathy; one of the two had a congenital heart defect and at 9 months old. ALLERGIES: Please see below. REVIEW OF SYSTEMS: CONSTITUTIONAL: Reports generalized weakness and fatigue over the past 2 weeks with intermittent fevers at home. Denies any significant chills, night sweats or unintentional change in weight HEENT: Reports bilateral temporal "pressure" that then present for the past 2 weeks and unchanged. Denies any blurry vision, double vision, tinnitus CARDIOVASCULAR: Denies any current chest pain, chest pressure or palpitations. RESPIRATORY: Reports chronic while inspiratory sternal pressure, that always occurs in the morning hours and is unchanged from baseline. Also reports some infrequent sputum production was clear phlegm. Denies shortness of breath. GASTROINTESTINAL: Reports right-sided abdominal pain as discussed in HPI. Also reports decreased appetite with nausea and looser stool yesterday. Denies any current nausea, recent vomiting, constipation, or blood in stool. GENITOURINARY: Denies any dysuria or hematuria MUSCULOSKELETAL: Poor generalized muscle weakness. NEUROLOGICAL: Denies any numbness or paresthesias of extremities. ENDOCRINE: Denies any significant heat or cold intolerance. HEMATOLOGIC: Denies easy bleeding or bruising. LYMPHATIC: Denies any new lumps or bumps. HOME MEDICATIONS: Please see below. PHYSICAL EXAMINATION: VITAL SIGNS: Temperature 98.9, pulse 100, respiratory rate 16, blood pressure 142/77, pulse oximetry 100 % on room air. GENERAL APPEARANCE: Pleasant, young, male lying upright in bed. Appears somewhat fatigued. Alert and oriented 3. No acute distress. HEENT: Normocephalic, atraumatic. Noninjected, anicteric sclerae. No conjunctival pallor. ORAL CAVITY: There is some exudate over the tongue, as well as erythema of the uvula and adenoids, and mildly of the posterior pharynx. MMM. NECK: Supple. Trachea midline. No lymphadenopathy appreciated. CARDIOVASCULAR: Borderline tachycardic rate, regular rhythm. Normal S1, S2. No murmurs or rubs appreciated. Adequate capillary refill (less than 2 seconds) LUNGS: Clear auscultation bilaterally. No adventitious breath sounds appreciated. Symmetric chest expansion. No excessive muscle use. Speaking full sentences. ABDOMEN: There is moderate tenderness of the right lower quadrant at approximately McBurney's point with guarding. Negative Rovsing's and heel tap testing. There is mild tenderness of the right upper quadrant with negative Alanis's sign. There is no rigidity. Normoactive bowel sounds throughout. No hepatosplenomegaly appreciated. No CVA tenderness. MUSCULOSKELETAL: Normal range of motion of all 4 extremities with 5/5 muscle strength testing. EXTREMITIES: Bilateral lower extremities are free of edema. 2+ radial and posterior tibial pulses bilaterally. No signs of clubbing or cyanosis with adequate capillary refill. NEUROLOGICAL: Alert and oriented 3. No focal neurologic deficits appreciated. Nondistended 6 speech. PSYCHIATRIC: Appeared somewhat emotionally exhausted in detailing his recent history, otherwise, mood and affect are appropriate. LABORATORY DATA: Please see below. IMAGING: CT abdomen and pelvis with contrast, 12/16/20 FINDINGS: Liver: Hepatomegaly measures 18 cm. Gallbladder and bile ducts: Normal. No calcified stones. No ductal dilation. Pancreas: Normal. No ductal dilation. Spleen: Splenomegaly measures 13 cm. Adrenal glands: Normal. No mass. Kidneys and ureters: Normal. No hydronephrosis. Stomach and bowel: Unremarkable. No obstruction. No mucosal thickening. Appendix: Appendix measures maximally up to 8 mm which is mildly thickened. No adjacent inflammation. Normal appendix. Intraperitoneal space: Unremarkable. No free air. No significant fluid collection. Vasculature: Unremarkable. No abdominal aortic aneurysm. Lymph nodes: Unremarkable. No enlarged lymph nodes. Urinary bladder: Under distended urinary bladder. Reproductive: Unremarkable as visualized. Bones/joints: There is symmetric bilateral sacroiliitis, stable from prior examination. Soft tissues: Unremarkable. IMPRESSION: 1. Appendix is mildly thickened, measuring 8 mm. No adjacent inflammatory changes are present. Early appendicitis is not excluded. 2. Symmetric bilateral sacroiliitis, stable from prior examination. MICROBIOLOGY: Please see below. ASSESSMENT & PLAN: This is a 25yo male w/ notable h/o ankylosing spondylitis and psoriatic arthritis who presented to the ED late on the evening of 12/16 with right-sided abdominal pain, marking the fifth ED presentation over the past 12 days. He was found to have significantly elevated liver enzymes in a mixed pattern and was subsequently admitted for further investigative workup. #Right lower quadrant abdominal pain -etiology could be early stage appendicitis vs mesenteric adenitis. Exam showed tenderness at McBurney's Point with neg Rovsing's and heel tap. Pt is afebrile with no white count. -mild thickening of appendix with no surrounding inflammation or periappendiceal fat stranding on CT. CT impression report said appendicitis could not be excluded. -ED discussed case with on-call general surgeon (Dr. Serrano) who did not feel surgical intervention was warranted at this time. -IVF hydration -Acetaminophen and NSAIDs deferred in setting of significantly elevated liver enzymes. Pt refused one time dose of oxycodone. #Elevated liver enzymes, mixed pattern -ALT 684, AST 362; Alk phos 201 -Calculated R-ratio = 4.6, indicating mixed pattern -Pt has multiple recent ED pxs over past 12 days, and both AST and ALT are decreased from 3 days ago -Prior testing: Negative HCV, HBV, HAV, EBV IgM; 12/13/20 RUQ U/S was negative -Further lab w/u ordered for both hepatocellular and cholestatic pattern etiology R/O: PT/INR, GGT, HSV 1&2, anti-smooth muscle Ab (autoimmune hep), anti-mitochondrial Ab (PSC), CMV, TSH (atypically thyroid pathology may l/t elevation), ceruloplasmin & sCu (Demario's), ferritin (hemochromatosis) -Tox screen ordered, as was acetaminophen level; has been taking roughly 1 gm/day Tylenol and 600 mg/day ibuprofen over past 10-12 days for ongoing intermittent fevers and malaise -Pt has no EtOH abuse hx and RUQ u/s 3 days ago did not reveal fatty infiltration. -Avoid hepatotoxic medications #Rapid strep positive on 12/13 -pt did not c/o sore throat upon this px -Is on Day 4 of 10 of 500 bid cephalexin; contd #History of ankylosing spondylitis and psoriatic arthritis -CT imaging showed b/l sacroililits that is stable and relatively unchanged from previous imaging -Had previously been on humira for both, but has not taken it in the past 7 months. -Pt's [place] watch adjuster refilled humira Rx 2 weeks ago, but pt has not taken it yet due to current sxs #DVT prophylaxis: Heparin sc Disposition: Admitted for possible early stage appendicitis and further w/u of elevated liver enzymes. Vital Signs Vital Signs Date Time Temp Pulse Resp B/P (MAP) Pulse Ox O2 Delivery O2 Flow Rate FiO2 12/17/20 02:54 88 17 99 Room Air 12/16/20 21:45 142/77 (98) 12/16/20 20:18 98.9 Laboratory Data Labs 24H Laboratory Tests 2 12/16/20 19:43: Neutrophils (%) (Auto) , Nucleated Red Blood Cells % (auto) 0.0, Neutrophils 23L, Lymphocytes (Manual) 48H, Monocytes (Manual) 4, Eosinophils (Manual) 2, Basophils (Manual) 1, Atypical Lymphocytes 22H, Platelet Estimate NORMAL, Erythrocyte Sedimentation Rate 9, Urine Color BRUNILDA, Urine Appearance CLEAR, Urine pH 6.0, Urine Specific Mason 1.016, Urine Protein 1+H, Urine Glucose (UA) NEGATIVE, Urine Ketones NEGATIVE, Urine Blood 1+H, Urine Nitrite NEGATIVE, Urine Bilirubin NEGATIVE, Urine Urobilinogen 0.2, Urine Leukocyte Esterase NEGATIVE, Urine WBC (Auto) 1, Urine RBC (Auto) 2, Urine Hyaline Casts (Auto) 0, Urine Bacteria (Auto) NEGATIVE, Urine Squamous Epithelial Cells 0, Urine Mucus (Auto) SMALL, Urine Sperm (Auto) , Anion Gap 7L, Glomerular Filtration Rate > 60.0, Calcium Level 9.3, Ferritin 874H, Total Bilirubin 0.7, Direct Bilirubin 0.1, Gamma Glutamyl Transferase 124H, Aspartate Amino Transf (AST/SGOT) 362H, Alanine Aminotransferase (ALT/SGPT) 684H, Alkaline Phosphatase 223H, C-Reactive Protein, Quantitative 1.28H, Total Protein 7.6, Albumin 4.0, Albumin/Globulin Ratio 1.1, Lipase 113, Thyroid Stimulating Hormone (TSH) 4.170H, Acetaminophen Level < 2.0L, Chlamydia trachomatis DNA (ILSA) NEGATIVE, Neisseria gonorrhoeae DNA (LISA) NEGATIVE 12/17/20 02:53: Prothrombin Time 15.4H, Prothromb Time International Ratio 1.19, Activated Partial Thromboplast Time 32.9 CBC/BMP Laboratory Tests 12/16/20 19:43 Microbiology Microbiology 12/17/20 Respiratory Virus Panel (PCR) (GAMALIEL) - Final, Complete Home Medications Scheduled Adalimumab (Humira Pen) 40 Mg/0.8 Ml Pen.[email or web address], 40 MG SC Q2WK Cephalexin (Cephalexin) 500 Mg Tablet, 500 MG PO BID STARTED 12/13/20 Cholecalciferol (Vitamin D3) (Vitamin D3) 1,000 Unit Tablet, 1,000 UNITS PO DAILY Allergies Coded Allergies: No Known Allergies (Unverified , 12/06/20) A-FIB/CHADSVASC A-FIB History Current/History of A-Fib/PAF?: No Current PO Anticoag Therapy: No GME ATTESTATION GME ATTESTATION My faculty preceptor for this patient encounter was physically present during the encounter and was fully available. All aspects of the patient interview, examination, medical decision making process, and medical care plan development were reviewed and approved by the faculty preceptor. The faculty preceptor is aware and concurs with the plan as stated in the body of this note and will attest to such by his/her cosignature. ATTENDING NOTE time of service 1215am is a 25 yr old M w a hx of ankylosing spondylitis and psoriatic arthritis (not compliant w Humira) who presented w c/o fevers, atypical lower back pain, and right lower quadrant abdominal pain. He will be admitted for evaluation of RLQ abdominal pain possibly 2/2 early appendicitis, trannsaminitis and possible +/- psoriasis flair. We will ask the day time team to discuss the case with and consider consulting Rheum. Rest per Dr.Schwarzs Hillman&ELISEO SANFORD D.O. Dec 17, 2020 06:49 FESTUS MARTINEZ MD Dec 17, 2020 22:34
[2020-12-17 08:01] LABS: BLOOD UREA NITROGEN 5 MG/DL (7-18); CALCIUM LEVEL 8.5 MG/DL (8.5-10.1); CARBON DIOXIDE LEVEL 27 MEQ/L (21-32); CHLORIDE LEVEL 107 MEQ/L (98-107); CREATININE FOR GFR 0.63 MG/DL (0.70-1.30); GLOMERULAR FILTRATION RATE > 60.0 (>60); GLUCOSE, FASTING 86 MG/DL (70-100); POTASSIUM SERUM 3.6 MEQ/L (3.5-5.1); SODIUM LEVEL 140 MEQ/L (136-145)
[2020-12-17 08:08] LABS: ALBUMIN 3.2 GM/DL (3.2-5.2); BILIRUBIN,DIRECT 0.2 MG/DL (0.0-0.2); BILIRUBIN,TOTAL 0.7 MG/DL (0.2-1.0); TOTAL PROTEIN 6.2 GM/DL (6.4-8.2)
[2020-12-17] MEDS: HEPARIN SOD (PORCINE) 5000UNITS/ML 1ML VIAL/SYRINGE SC SCH ×2 (09:18→20:17)
[2020-12-17] MEDS: VITAMIN D 1,000 INTERNATIONAL UNITS TABLET PO SCH (09:18)
[2020-12-17] MEDS: CEPHALEXIN 500 MG CAP PO SCH ×2 (09:18→20:16)
--- NOTE | 2020-12-17 10:47 | IPNPDOC ---
Text Note Date of Service The patient was seen on 12/17/20. NOTE Subjective: No acute events overnight. Pt states that his abd pain is worse with movement but feels better when laying still. Reports that having his knees flexed while laying down helps with his pain. Admits to decreased appetite. Denies any current nausea, vomiting, headache, sore throat, cough, congestion, chest pain, SOB. He states that his throat has been feeling "phlegmy" and has been having to clear his throat occasionally. Pt also reports that he has been drinking 1-2 bottles of water an hour in order "to stay hydrated" but has noticed that his urine was darker in coloration that usual. Denies any dysuria, hematuria, urgency but states that he has had frequency due to increased water intake. Denies polydipsia. Pt reports that he drinks alcohol occasionally (about 6 beers a month). Denies any hx of hepatitis, IV drug use. He also states that he went to urgent care 4 weeks ago and was given an rx for amoxicillin due to possible strep throat. Objective: VITALS: See below. GENERAL: Pt is laying down at rest with knees flexed. No acute distress. Appears fatigued. HEENT: NC/AT. EOMI. Conjunctiva and lids normal. No scleral icterus. Mild erythema to posterior oropharynx. Uvula midline. Moist mucous membranes. CARDIOVASCULAR: Regular rate and rhythm. Normal S1/S2. No murmurs rubs, or gallops appreciated. PULMONARY: Lungs clear to auscultation bilaterally. Good air movement. No wheezes, rales, or rhonchi appreciated. ABD: RLQ tenderness with guarding. No tenderness to RUQ, LLQ, LUQ. No abdominal distention. No hepatomegaly. Normoactive bowel sounds to all four quadrants. Pt is laying with both knees flexed. EXTREMITIES: No edema to BLE. 2+/4 DP pulses bilaterally. NEUROLOGICAL: No focal neurologic deficits. Imaging: CT Abd/pelvis with contrast 1. Appendix is mildly thickened, measuring 8 mm. No adjacent inflammatory changes are present. Early appendicitis is not excluded. 2. Symmetric bilateral sacroiliitis, stable from prior examination. Assessment/Plan: Patient is a 25 year old male with PMH of ankylosing spondylitis and psoriatic arthritis who presented to the ED with complaints of R sided abd pain, decreased appetite, and back pain. In the ED he was found to have elevated liver enzymes and CT showed possible early appendicitis so he was admitted for further evaluation. #Right lower quadrant abdominal pain - Pt presented with RLQ abd pain that was worse with movement and better with rest and knee flexion. Examination showed tenderness to RLQ. - CT done showed possible early appendicitis. ED discussed case with Dr. Serrano, general surgeon, who did not feel surgical intervention was warranted at this time. - Pt has been afebrile since arrival and WBC is WNL at 6.6. - Pt declined one time dose of Oxycodone 5 mg PO. - Will continue to monitor. #Elevated liver enzymes - Pt has no RUQ tenderness on examination and no hepatomegaly was appreciated. - Liver enzymes elevated on presentation: GGT 124, AST 362, ALT 684, alk phos 223. This appears to be decreased compared to labs done on 12/13/20. Repeat labs today show a downtrend in liver enzymes: AST 269, ALT 517, alk phos 178. - R factor 4.4, indicating mixed injury, placing autoimmune hepatitis on the differential list. - Pt reports taking Tylenol and ibuprofen for pain. He states that he has been taking about 1 g of acetaminophen daily. Acetaminophen level <2. Unlikely 2/2 acetaminophen toxicity. - Prior work up on 12/13/20 for HVC, HBV, HAV were negative. - Liver US done on 12/10/20 showed an essentially negative abdominal right upper quadrant ultrasound. The hepatic parenchyma was homogenous and otherwise unremarkable. - Further work up has been ordered: ceruloplasmin, ferritin, plasma copper, anti-mitochondrial ab, anti-smooth muscle ab, CMV, HSV. Results pending. - UDS ordered to rule out drugs/EtOH use as a cause of elevated liver enzymes. - Will continue to monitor and avoid any hepatotoxic medications. #Hx of reported fever - Pt has hx of reported fever at home with Tmax of 101. Pt states that this started two weeks ago and has been to the ED and urgent care multiple times. - He has been tested negative for COVID and denies any exposures to COVID. - Given hx of fever and fatigue, ddx include viral infection such as COVID and mononucleosis. EBV testing done on 12/06/20 that returned with elevated EBV nuclear antigen ab and EBV capsid Ag IgG Ab, indicating likely prior infection with EBV. - Repeat COVID has been ordered to r/o COVID infection. #Rapid strep positive on 12/13/20 - Pt was tested positive for strep via rapid strep test and was prescribed 10 days of Cephalexin by [facility] ED on 12/13/20. - Will continue Cephalexin 500 mg PO BID here, making this day #10. #Hx of vitamin D deficiency - Pt has hx of vitamin D deficiency and has been taking vitamin D supplements at home. - Continue vitamin D 1,000 units PO Daily. DVT Prophylaxis: Heparin 5,000 units SC Q12H. Disposition: Pending clinical improvement. VS,Fishbone, I+O VS, Fishbone, I+O Laboratory Tests 12/16/20 19:43 12/17/20 06:52 Vital Signs Date Time Temp Pulse Resp B/P (MAP) Pulse Ox O2 Delivery O2 Flow Rate FiO2 12/17/20 06:00 98.1 88 18 116/76 (89) 99 Room Air I&O- Last 24 Hours up to 6 AM 12/17/20 05:59 Intake Total 1300 ml Output Total 400 ml Balance 900 ml GME ATTESTATION GME ATTESTATION My faculty preceptor for this patient encounter was physically present during the encounter and was fully available. All aspects of the patient interview, examination, medical decision making process, and medical care plan development were reviewed and approved by the faculty preceptor. The faculty preceptor is aware and concurs with the plan as stated in the body of this note and will attest to such by his/her cosignature. ATTENDING NOTE I, Andi Mayer MD, have independently examined this patient and performed my own physical exam, as well as reviewed the documentation and edited where necessary. I have discussed in detail with the resident / student the findings and plan of treatment as documented by the resident / student and edited their note. I agree with their findings and treatment plan and have edited their documentation. Sumaya RAMOS OMS-3 Dec 17, 2020 09:09 ANDI MAYER MD Dec 18, 2020 15:53
[2020-12-17 12:21] LABS: D-DIMER QUANT 695.69 ng/ml (<500)
[2020-12-17 12:39] LABS: CPK CREATINE PHOSPHOKINASE 52 U/L (39-308); LDH LACTATE DEHYDROGENASE 302 U/L (87-241); TROPONIN I < 0.02 NG/ML (< 0.10)
[2020-12-17 14:00] VITALS: BP 121/80
[2020-12-17 22:00] VITALS: BP 113/62
[2020-12-18 06:00] VITALS: BP 115/64
[2020-12-18 06:18] LABS: CYTOMEGALOVIRUS IgM ANTIBODY >240.0 AU/mL (0.0-29.9)
[2020-12-18] MEDS: HEPARIN SOD (PORCINE) 5000UNITS/ML 1ML VIAL/SYRINGE SC SCH (09:00)
[2020-12-18] MEDS: CEPHALEXIN 500 MG CAP PO SCH (09:00)
[2020-12-18 09:01] LABS: HEMATOCRIT 40.9 % (42.0-52.0); HEMOGLOBIN 13.8 g/dl (13.5-17.5); MEAN CORPUSCULAR HEMOGLOBIN 31.2 pg (27.0-33.0); MEAN CORPUSCULAR HGB CONC 33.7 g/dl (32.0-36.5); MEAN CORPUSCULAR VOLUME 92.5 fl (80.0-96.0); PLATELET COUNT, AUTOMATED 225 10^3/uL (150-450); RED BLOOD COUNT 4.42 10^6/uL (4.30-6.10); WHITE BLOOD COUNT 5.2 10^3/uL (4.0-10.0)
[2020-12-18] MEDS: VITAMIN D 1,000 INTERNATIONAL UNITS TABLET PO SCH (09:04)
[2020-12-18 09:27] LABS: ALBUMIN 3.5 GM/DL (3.2-5.2); ALT/SGPT 530 U/L (12-78); ATYPICAL LYMPH 8 % (0-5); BILIRUBIN,TOTAL 0.7 MG/DL (0.2-1.0); BLOOD UREA NITROGEN 6 MG/DL (7-18); CALCIUM LEVEL 8.8 MG/DL (8.5-10.1); CARBON DIOXIDE LEVEL 28 MEQ/L (21-32); CHLORIDE LEVEL 106 MEQ/L (98-107); EOSINOPHILS 1 % (0-3); GLOMERULAR FILTRATION RATE > 60.0 (>60); GLUCOSE, FASTING 91 MG/DL (70-100); LYMPHOCYTES 52 % (16-44); MONOCYTES 9 % (0-5); NEUTROPHILS 30 % (28-66); PLATELET ESTIMATE NORMAL (NORMAL); SODIUM LEVEL 140 MEQ/L (136-145); TOTAL PROTEIN 6.9 GM/DL (6.4-8.2)
--- NOTE | 2020-12-18 10:57 | DS.PDOC ---
Discharge Summary General Date of Admission Dec 17, 2020 at 00:03 Date of Discharge Dec 18, 2020. Attending Physician: ANDI CANELA MD Discharge Summary PROCEDURES PERFORMED DURING STAY: None. ADMITTING DIAGNOSES: 1. Right lower quadrant abdominal pain. 2. Elevated liver enzymes, mixed pattern. 3. Rapid strep positive on 12/13. 4. History of ankylosing spondylitis and psoriatic arthritis. DISCHARGE DIAGNOSES: 1. CMV hepatitis. 2. CMV infection. 3. Elevated liver enzymes. 4. Right lower quadrant abdominal pain. 5. History of ankylosing spondylitis and psoriatic arthritis. COMPLICATIONS/CHIEF COMPLAINT: Flank Pain,Sacroiliitis,Transaminitis. HISTORY OF PRESENT ILLNESS: Lazaro is a pleasant 25 year old male with PMHx of ankylosing spondylitis, psoriatic arthritis, and vitamin D deficiency, who presented to the ED late in the evening on 12/16/20 with a chief complaint of right-sided abdominal, flank, and back pain. The pain arose that morning when patient woke up and he reports it has steadily worsened throughout the day. He describes it as a dull throb that progresses to sharp pain whenever pressure is applied. He has the associated right flank and back pain. He describes the flank and back pain is different from his typical pain associated with his enclosing spondylitis and psoriatic arthritis. He has had a decreased appetite with some nausea yesterday but is maintained a steady consistent fluid intake. Is important to note this mendoza the patient's fifth ED visit in the past 2 weeks (since 12/04/20). His symptoms began with dizziness at rest that progressed to intermittent subjective fevers and bilateral temporal head pressure. Back in the beginning of the month, he initially presented to urgent care where he was febrile and subsequently seen in the ED and diagnosed with a tension headache. He then returned another 2 times to the ED and was told he had a viral illness. He was instructed to alternate taking ibuprofen and Tylenol in maintaining good hydration for symptomatic management. He then tried the [place] emergency department, where a send out Covid test was done and he was instructed to quarantine for 5 days. He most recently was seen at the [facility] ED on 12/13/20, at which point a rapid strep test was positive and he was prescribed 10 days of cephalexin. Over the course of the past 10 days or so, he reports averaging three, 200 mg ibuprofen tablets/day (600 mg), as well as two, 500 mg Tylenol extra strength tablets/day (1 g). Due to continuing intermittent fevers at home, generalized weakness, and the new onset abdominal pain today, he subsequently returned to the ED again. He had elevated liver enzymes on his last 2 ED presentations and again they were elevated today with AST 362 and ALT 684, with alkaline phosphatase of 223. When reviewing the recent records, the AST and ALT are actually decreased from where they were just 3 days ago. He was afebrile in the ED and had no white count, although he did have a lymphocyte predominance on differential. In abdomen, pelvis CT with contrast was ordered in the ED due to the new onset abdominal pain which showed mild thickening of the appendix without the ability to exclude appendicitis, but no evidence of periappendiceal fat stranding. The ED spoke with the on-call general surgeon (Dr. Serrano) who reviewed the CT and did not feel surgical intervention was warranted at this time. An urinalysis was unremarkable and testing for chlamydia and gonorrhea was negative. IV fluid hydration in the form of normal saline was initiated. The patient was subsequently admitted under the care of the hospitalist service primarily for further workup of elevated liver enzymes in the setting of new onset abdominal pain. HOSPITAL COURSE: Pt had no acute events during his hospital stay. There was slight concern of appendicitis at the time of admission given CT and physical exam findings. Dr. Serrano was called and felt that surgical intervention was not warranted at that time. He continued to complain of abd pain yesterday but reported more of a "pressure" rather than an abdominal pain on examination this morning. He did not have any guarding or rebound abdominal tenderness as well so suspicion of appendicitis low. In regards to patients elevated liver enzymes, labs have shown that these values have been downtrending since admission. On admission, GGT 124, AST 362, ALT 684, and alk phos 223. Today, the day of discharge, AST 245, ALT 530, alk phos 201. Labs were ordered to rule out likely causes of elevated liver enzymes and pt was found to be positive for CMV IgG Ab and CMV IgM Ab, indicating an acute CMV infection. This is likely the cause of pt elevated liver enzymes as well as recent symptomatology with fatigue, decreased appetite, and intermittent fevers. Pt denies any acute visual changes. Due to concerns of immune dysfunction, HIV screen was ordered. Maximal benefits from this hospital stay obtained for patient given dx of CMV infection. Will discharge pt with instructions of supportive treatment at home (hydration, Ibuprofen for fevers, low protein diet) followed by follow up with PCP for repeat LFT's. Pt reports that he is due to restart his Humira but was instructed to hold Humira and follow up with PCP and Instructional Paraprofessional prior to restarting. DISCHARGE MEDICATIONS: Please see below. ALLERGIES: Please see below. PHYSICAL EXAMINATION ON DISCHARGE: VITAL SIGNS: Please see below. GENERAL: Pt is laying in bed, comfortably at rest. No acute distress. HEENT: NC/AT. EOMI. Normal conjunctiva and lids. No scleral icterus. CARDIOVASCULAR EXAMINATION: Regular rate and rhythm. No murmurs, rubs, or gallops appreciated. RESPIRATORY EXAMINATION: Lungs clear to auscultation bilaterally. Good air movement. No wheezes, rales, or rhonchi appreciated. ABDOMINAL EXAMINATION: Abd soft. Very minimal tenderness to RLQ that pt describes more as a pressure than pain. No guarding or rebound. Normoactive b owel sounds in all four quadrants. EXTREMITIES: No pitting edema to BLE. 2+/4 DP pules to BLE. NEUROLOGICAL EXAMINATION: No focal neurologic deficits. LABORATORY DATA: Please see below. IMAGING: CT Abd/pelvis with contrast 1. Appendix is mildly thickened, measuring 8 mm. No adjacent inflammatory changes are present. Early appendicitis is not excluded. 2. Symmetric bilateral sacroiliitis, stable from prior examination. PROGNOSIS: Fair. ACTIVITY: As tolerated. DIET: As tolerated. DISCHARGE PLAN: Discharge home. DISCHARGE INSTRUCTIONS: 1. Follow up with PCP in 1 week for repeat LFT's. 2. Follow up with legal advisor as scheduled prior to restarting Humira. 3. Continue supportive treatment at home with hydration and ibuprofen for fevers. Avoid high protein diet. 4. Return to the ED if symptoms worsen or return. ITEMS TO FOLLOWUP ON ON OUTPATIENT: 1. Follow up with PCP in 1 week for repeat LFT's. 2. Follow up with legal advisor as scheduled prior to restarting Humira. DISCHARGE CONDITION: Stable. TIME SPENT ON DISCHARGE: Greater than 35 minutes. Vital Signs/I&Os Vital Signs Date Time Temp Pulse Resp B/P (MAP) Pulse Ox O2 Delivery O2 Flow Rate FiO2 12/18/20 06:00 98.9 98 18 115/64 (81) 97 Room Air I&O- Last 24 Hours up to 6 AM 12/18/20 06:00 Intake Total 810 ml Output Total 500 ml Balance 310 ml Laboratory Data Labs 24H Laboratory Tests 2 12/17/20 11:19: Fibrinogen 210L, D-Dimer, Quantitative 695.69H, Lactate Dehydrogenase 302H, Total Creatine Kinase 52, Troponin I < 0.02 12/17/20 12:57: Urine Ethanol Negative, Urine Opiates Screen. Negative, Urine Barbiturates Negative, Urine Phencyclidine Screen Negative, Urine Amphetamine Screen Negative, Urine Benzodiazepines Screen Negative, Urine Cocaine Metabolite Negative, Urine Cannabinoids Negative Microbiology Microbiology 12/17/20 Respiratory Virus Panel (PCR) (GAMALIEL) - Final, Complete 12/17/20 Respiratory Virus Panel (PCR) ([facility]ALIEL) - Final, Complete Discharge Medications Scheduled Adalimumab (Humira Pen) 40 Mg/0.8 Ml Pen.[email or web address].kit, 40 MG SC Q2WK, (Reported) Cephalexin (Cephalexin) 500 Mg Tablet, 500 MG PO BID, (Reported) STARTED 12/13/20 Cholecalciferol (Vitamin D3) (Vitamin D3) 1,000 Unit Tablet, 1,000 UNITS PO DAILY, (Reported) Allergies Coded Allergies: No Known Allergies (Unverified , 12/06/20) GME ATTESTATION GME ATTESTATION My faculty preceptor for this patient encounter was physically present during the encounter and was fully available. All aspects of the patient interview, examination, medical decision making process, and medical care plan development were reviewed and approved by the faculty preceptor. The faculty preceptor is aware and concurs with the plan as stated in the body of this note and will attest to such by his/her cosignature. ATTENDING NOTE I, Andi Canela MD, have independently examined this patient and performed my own physical exam, as well as reviewed the documentation and edited where necessary. I have discussed in detail with the resident / student the findings and plan of treatment as documented by the resident / student and edited their note. I agree with their findings and treatment plan and have edited their documentation. Total time spent on this patient including coordination of care, review of chart documentation and actual patient contact is around 35 minutes Sumaya RAMOS OMS-3 Dec 18, 2020 09:03 ANDI CANELA MD Dec 18, 2020 15:57
[2020-12-18 11:07] LABS: HIV 1&2 SCREEN CENTAUR NEGATIVE (NEGATIVE)
[2020-12-18 13:08] LABS: ANTI-MITOCHONDRIAL ANTIBODY <20.0 Units (0.0-20.0); ANTI-SMOOTH MUSCLE ANTIBODY 6 Units (0-19)
[2020-12-21 16:11] LABS: HSV TYPE I IgM AB <1:10 titer (<1:10); HSV TYPE II IgM ABY <1:10 titer (<1:10)
== END 2020-12-18 14:14 | disposition home or self-care (01) | DRG 443 ==
LOC: M ED 18:56 → M ED INP 12-17 00:03 → ENRESERV 12-17 02:21 → M MSPAV 12-17 03:27
PROVIDERS: ADMIT Internal Medicine; ATTEND Internal Medicine
DX: B25.1 Cytomegaloviral hepatitis (principal); R10.31 Right lower quadrant pain; R94.5 Abnormal results of liver function studies; L40.50 Arthropathic psoriasis, unspecified; M45.9 Ankylosing spondylitis of unspecified sites in spine; J02.0 Streptococcal pharyngitis; M46.1 Sacroiliitis, not elsewhere classified; Z87.891 Personal history of nicotine dependence; Z79.899 Other long term (current) drug therapy; Z20.822 Contact with and (suspected) exposure to COVID-19

== ENCOUNTER 2021-01-10 16:44 | Emergency (ER) | payer OTHER ==
[~2021-01-10] VITALS: Ht 177.8 cm; Wt 84.3 kg
[~2021-01-10 16:44] MED LIST changes: +CEPH500T PO; +D31000TA2 PO
[2021-01-10] MEDS ORDERED: BUTA1CAP PO (16:52)
[2021-01-10] MEDS ORDERED: diphenhydrAMINE 50MG/ML VIAL (J1200) IV STA (18:27)
[2021-01-10] MEDS ORDERED: NS 1,000 ML IV ONE (18:30)
[2021-01-10] MEDS ORDERED: METOCLOPRAMIDE INJ 10MG/2ML VIAL (J2765 PER 1) IV ONE (18:30)
[2021-01-10] MEDS ORDERED: KETOROLAC 30 MG/ML 1ML VIAL IV ONE (18:30)
[2021-01-10 18:57] LABS: BASO # 0.1 10^3/uL (0.0-0.2); BASO % 1.5 % (0.0-1.0); EOS # 0.2 10^3/uL (0.0-0.5); EOS % 4.1 % (0.0-3.0); HEMATOCRIT 45.2 % (42.0-52.0); HEMOGLOBIN 15.3 g/dl (13.5-17.5); LYMPH # 2.4 10^3/uL (1.5-5.0); LYMPH % 43.5 % (24.0-44.0); MEAN CORPUSCULAR HEMOGLOBIN 29.9 pg (27.0-33.0); MEAN CORPUSCULAR HGB CONC 33.8 g/dl (32.0-36.5); MEAN CORPUSCULAR VOLUME 88.5 fl (80.0-96.0); MONO # 0.6 10^3/uL (0.0-0.8); MONO % 11.3 % (2.0-8.0); NEUTROPHILS # 2.1 10^3/uL (1.5-8.5); NEUTROPHILS % 39.2 % (36.0-66.0); PLATELET COUNT, AUTOMATED 220 10^3/uL (150-450); RED BLOOD COUNT 5.11 10^6/uL (4.30-6.10); WHITE BLOOD COUNT 5.4 10^3/uL (4.0-10.0)
--- NOTE | 2021-01-10 19:22 | REPVR ---
PROCEDURE INFORMATION: Exam: CT Head Without Contrast Exam date and time: 01/10/2021 6:34 PM Age: 25 years old Clinical indication: Other: GONSALVES x 5 days, constant, meds not helping TECHNIQUE: Imaging protocol: Computed tomography of the head without contrast. Radiation optimization: All CT scans at this facility use at least one of these dose optimization techniques: automated exposure control; mA and/or kV adjustment per patient size (includes targeted exams where dose is matched to clinical indication); or iterative reconstruction. COMPARISON: CT Head without contrast 12/10/2020 4:58 PM FINDINGS: Brain: No hemorrhage. Unremarkable white matter for the patient's age. No mass effect. No evolving territorial infarct. Cerebral ventricles: Stable. No ventriculomegaly. Bones/joints: Unremarkable. No acute fracture. Paranasal sinuses: Visualized sinuses are unremarkable. No fluid levels. Mastoid air cells: Visualized mastoid air cells are well aerated. Soft tissues: Unremarkable. IMPRESSION: No acute intracranial abnormality seen. Electronically signed by: Rona Vergara On 01/10/2021 19:21:42 PM
[2021-01-10 20:52] VITALS: BP 120/62
== END 2021-01-10 21:03 | disposition home or self-care (01) ==
LOC: M ED 16:44
DX: R51.9 Headache, unspecified (principal); L40.50 Arthropathic psoriasis, unspecified
CPT/HCPCS: 70450; 80047; 83735; 85025; 96361; 96374; 96375; 99284; J1200; J1885; J2765

== ENCOUNTER 2021-01-25 18:54 | Emergency (ER) | payer OTHER ==
[~2021-01-25] VITALS: Ht 177.8 cm; Wt 82.8 kg
[~2021-01-25 18:54] MED LIST changes: +BUTA1CAP PO
[2021-01-25 18:55] VITALS: BP 129/67
[2021-01-25] MEDS ORDERED: GI COCKTAIL 50ML BTL(HYOSCYAMINE/MAALOX/LIDOCAINE VISCOUS)(1:3:1) PO ONE (21:20)
[2021-01-25] MEDS ORDERED: NS 1,000 ML IV ONE (21:20)
[2021-01-25 21:42] LABS: BASO # 0.1 10^3/uL (0.0-0.2); BASO % 1.2 % (0.0-1.0); EOS # 0.2 10^3/uL (0.0-0.5); EOS % 4.5 % (0.0-3.0); HEMATOCRIT 42.6 % (42.0-52.0); HEMOGLOBIN 14.3 g/dl (13.5-17.5); LYMPH % 40.2 % (24.0-44.0); MEAN CORPUSCULAR HEMOGLOBIN 30.4 pg (27.0-33.0); MEAN CORPUSCULAR HGB CONC 33.6 g/dl (32.0-36.5); MEAN CORPUSCULAR VOLUME 90.6 fl (80.0-96.0); MONO # 0.4 10^3/uL (0.0-0.8); MONO % 8.8 % (2.0-8.0); NEUTROPHILS # 2.2 10^3/uL (1.5-8.5); NEUTROPHILS % 45.1 % (36.0-66.0); PLATELET COUNT, AUTOMATED 234 10^3/uL (150-450); WHITE BLOOD COUNT 4.9 10^3/uL (4.0-10.0)
[2021-01-25 22:09] LABS: ALBUMIN 3.7 GM/DL (3.2-5.2); ALT/SGPT 45 U/L (12-78); BILIRUBIN,DIRECT < 0.1 MG/DL (0.0-0.2); BILIRUBIN,TOTAL 0.3 MG/DL (0.2-1.0); LIPASE 80 U/L (73-393); TOTAL PROTEIN 7.2 GM/DL (6.4-8.2)
--- NOTE | 2021-01-25 23:51 | REPVR ---
PROCEDURE INFORMATION: Exam: US Abdomen Complete Exam date and time: 01/25/2021 10:30 PM Age: 25 years old Clinical indication: Abdominal pain; Flank; Left upper quadrant (luq); Additional info: Upper abd pain, worse after meals, recent cmv TECHNIQUE: Imaging protocol: Real-time ultrasound of the abdomen with image documentation. COMPARISON: CT ABD/PEL W/IV ORAL CONTRAS 12/16/2020 10:01 PM FINDINGS: Liver: Normal. No mass. Gallbladder: Gallbladder is contracted. No definite cholelithiasis. Common bile duct: Normal. No stones. No dilation. Pancreas: No focal abnormality involving the visualized portions of the pancreas. Right kidney: Right kidney measures up to 11.1 cm and appears within normal limits without hydronephrosis. Left kidney: Left kidney measures up to 11.5 cm and is without hydronephrosis. Spleen: No focal abnormality involving the spleen. Mild splenomegaly measuring 12.5 cm. Aorta: Visualized abdominal aorta is nonaneurysmal. IMPRESSION: 1. No acute abnormality. 2. Mild splenomegaly. Electronically signed by: Cristóbal Lal On 01/25/2021 23:50:33 PM
== END 2021-01-26 00:02 | disposition home or self-care (01) ==
LOC: M ED 18:54
DX: R16.1 Splenomegaly, not elsewhere classified (principal); Z86.19 Personal history of other infectious and parasitic diseases